=== PATIENT | male | born 1945 | race Caucasian/White ===

== ENCOUNTER → 2017-03-28 | Outpatient (CLI) | payer MEDICARE ==
[~2017-03-28] MED LIST: MAGN400O7 PO; METH750T87 PO; None per pt.; SENN1TAB7 PO
== END | disposition home or self-care (01) ==
LOC: CFH 12:12
PROVIDERS: ATTEND Physician Assistant
DX: M51.36 Other intervertebral disc degeneration, lumbar region (principal); M48.061 Spinal stenosis, lumbar region without neurogenic claudication; M47.816 Spondylosis without myelopathy or radiculopathy, lumbar region; M25.551 Pain in right hip; M25.552 Pain in left hip; E55.9 Vitamin D deficiency, unspecified; C61 Malignant neoplasm of prostate; E78.2 Mixed hyperlipidemia; G61.0 Guillain-Barre syndrome; R53.83 Other fatigue; G89.29 Other chronic pain; H92.09 Otalgia, unspecified ear; R05 Cough
CPT/HCPCS: 72100; 73523

== ENCOUNTER → 2018-06-26 | Outpatient (CLI) | payer MEDICARE, OTHER ==
[~2018-06-26] MED LIST changes: +SENN-177 PO; -SENN1TAB7 PO
== END | disposition home or self-care (01) ==
LOC: CARD 09:03
PROVIDERS: ATTEND Nurse Practitioner Primary Care
DX: I25.10 Atherosclerotic heart disease of native coronary artery without angina pectoris (principal); E78.2 Mixed hyperlipidemia; E55.9 Vitamin D deficiency, unspecified; C61 Malignant neoplasm of prostate; G61.0 Guillain-Barre syndrome; R53.83 Other fatigue; Z79.899 Other long term (current) drug therapy
CPT/HCPCS: 93017